=== PATIENT | male | born 1995 | race Caucasian/White ===

== ENCOUNTER 2018-07-16 08:50 | Emergency (ER) | payer OTHER ==
[~2018-07-16] VITALS: Ht 177.8 cm; Wt 81.8 kg
[2018-07-16 08:51] VITALS: BP 128/82
[2018-07-16] MEDS ORDERED: ONDANSETRON 4MG/2ML VIAL (J2405) IV ONE (09:15)
[2018-07-16] MEDS ORDERED: NS 1,000 ML IV ONE (09:15)
[2018-07-16 09:37] LABS: BASO % 0.2 % (0.0-1.0); EOS # 0.1 10^3/uL (0.0-0.50); EOS % 0.4 % (0.0-3.0); LYMPH # 0.7 10^3/uL (1.5-6.5); LYMPH % 4.5 % (24.0-44.0); MEAN CORPUSCULAR HEMOGLOBIN 30.1 pg (27.0-33.0); MEAN CORPUSCULAR HGB CONC 35.1 g/dl (32.0-36.5); MEAN CORPUSCULAR VOLUME 85.8 fl (80.0-96.0); MONO % 6.3 % (0.0-5.0); NEUTROPHILS # 13.7 10^3/uL (1.8-7.7); NEUTROPHILS % 88.2 % (36.0-66.0); PLATELET COUNT, AUTOMATED 336 10^3/uL (150-450); RED BLOOD COUNT 6.07 10^6/uL (4.30-6.10); WHITE BLOOD COUNT 15.6 10^3/uL (4.0-10.0)
[2018-07-16 09:39] LABS: HEMATOCRIT 52.1 % (42.0-52.0); HEMOGLOBIN 18.3 g/dl (13.5-17.5)
[2018-07-16 10:00] LABS: ALBUMIN 4.7 GM/DL (3.2-5.2); ALT/SGPT 27 U/L (12-78); AMYLASE 83 U/L (25-115); BILIRUBIN,DIRECT 0.2 MG/DL (0.0-0.2); BILIRUBIN,TOTAL 0.7 MG/DL (0.2-1.0); BLOOD UREA NITROGEN 15 MG/DL (7-18); CALCIUM LEVEL 9.2 MG/DL (8.5-10.1); CARBON DIOXIDE LEVEL 31 MEQ/L (21-32); CHLORIDE LEVEL 104 MEQ/L (98-107); CREATININE FOR GFR 1.07 MG/DL (0.70-1.30); GLOMERULAR FILTRATION RATE > 60.0 (>60); GLUCOSE, FASTING 93 MG/DL (70-100); LIPASE 104 U/L (73-393); POTASSIUM SERUM 4.1 MEQ/L (3.5-5.1); SODIUM LEVEL 141 MEQ/L (136-145); TOTAL PROTEIN 7.7 GM/DL (6.4-8.2)
[2018-07-16] MEDS ORDERED: ISOVUE-370 76% 100ML VIAL (Q9967) As Ordered ONE (10:26)
[2018-07-16] MEDS ORDERED: ONDA4TAB6 PO (10:46)
[2018-07-16] MEDS ORDERED: DICY10CA13 PO (10:47)
--- NOTE | 2018-07-16 10:50 | REP ---
Clinical: Abdominal pain with nausea, vomiting, and diarrhea. Technique: Axial contrast enhanced images from the lung bases to the pubic symphysis using 100 ml Isovue 370 intravenous contrast material with coronal and sagittal re-formations. Findings: Lung bases are clear. Visualized heart and pericardium normal. Liver, spleen, pancreas, gallbladder, bilateral adrenal glands and kidneys are normal. The enteric system is without obstruction or acute inflammatory process. Normal terminal ileum and appendix identified in the right lower quadrant. Pelvis demonstrates normal bladder and age appropriate prostate/seminal vesicles. No ascites. No free air. No adenopathy. Abdominal aorta and vasculature normal. Surrounding musculoskeletal structures are intact. Impression: Normal CT of the abdomen and pelvis. No acute abdominopelvic pathology appreciated. Electronically Signed by Zay Gerardo MD 07/16/2018 10:42 A
== END 2018-07-16 11:01 | disposition home or self-care (01) ==
LOC: M ED 08:50
DX: R10.9 Unspecified abdominal pain (principal); R11.2 Nausea with vomiting, unspecified; R19.7 Diarrhea, unspecified; Z91.013 Allergy to seafood; F17.210 Nicotine dependence, cigarettes, uncomplicated
CPT/HCPCS: 36415; 74177; 80048; 80076; 81001; 82150; 83690; 85025; 87507; 96361; 96374; 99284; J2405; Q9967

== ENCOUNTER 2018-10-29 09:50 | Emergency (ER) | payer OTHER ==
[~2018-10-29] VITALS: Ht 180.3 cm; Wt 81.1 kg
[~2018-10-29 09:50] MED LIST: DICY10CA13 PO; ONDA4TAB6 PO
[2018-10-29] MEDS ORDERED: LIDOCAINE 1% MDV 20ML VIAL SC ONE (10:15)
--- NOTE | 2018-10-29 10:55 | REP ---
RIGHT HAND SERIES: Four views of the right hand are performed. No fracture or dislocation is seen. Two metallic screws are seen in the base of the 4th middle phalanx. There is mild narrowing of the 4th proximal interphalangeal joint. No other significant findings are seen. Electronically Signed by Bradly Adam MD 10/29/2018 04:50 P
[2018-10-29] MEDS ORDERED: AUGMENTIN 875 MG TAB PO ONE (11:15)
[2018-10-29] MEDS ORDERED: AUGM875T28 PO (11:26)
[2018-10-29] MEDS ORDERED: IBUP-1022 PO (11:26)
[2018-10-29 11:36] VITALS: BP 135/78
[2018-10-30] MEDS ORDERED: MIDAZOLAM INJ 2 MG/2 ML VIAL (J2250) As Ordered ONE (15:56)
[2018-10-30] MEDS ORDERED: PROPOFOL 200 MG/20 ML VIAL As Ordered ONE (15:56)
[2018-10-30] MEDS ORDERED: dexameTHASONE 4 MG/ML 1ML VIAL (J1100) As Ordered ONE (15:56)
[2018-10-30] MEDS ORDERED: ONDANSETRON 4MG/2ML VIAL (J2405) As Ordered ONE ×2 (15:56→17:14)
[2018-10-30] MEDS ORDERED: LIDOCAINE 2% INJ 100 MG/5 ML SDV (FOR ANES.) As Ordered ONE (15:56)
[2018-10-30] MEDS ORDERED: fentaNYL 100 MCG/2 ML INJECTION (J3010) As Ordered ONE (15:56)
[2018-10-30] MEDS ORDERED: ACETAMINOPHEN 1000MG 100ML IV BTL (OFIRMEV) (J0131 PER 10MG) As Ordered ONE (17:09)
== END 2018-10-29 11:37 | disposition home or self-care (01) ==
LOC: M ED 09:50
DX: S66.921A Laceration of unspecified muscle, fascia and tendon at wrist and hand level, right hand, initial encounter (principal); X58.XXXA Exposure to other specified factors, initial encounter; Y92.59 Other trade areas as the place of occurrence of the external cause; Y93.9 Activity, unspecified; Y99.9 Unspecified external cause status; Z72.0 Tobacco use; Z91.018 Allergy to other foods

== ENCOUNTER 2018-10-30 13:20 | Day surgery (SDC) | payer OTHER ==
[~2018-10-30] VITALS: Ht 180.3 cm; Wt 79.2 kg
[~2018-10-30 13:20] MED LIST changes: +AUGM875T28 PO; +IBUP-1022 PO
[2018-10-30] MEDS ORDERED: dexameTHASONE 4 MG/ML 1ML VIAL (J1100) ONE (15:56)
[2018-10-30] MEDS ORDERED: MIDAZOLAM INJ 2 MG/2 ML VIAL (J2250) ONE (15:56)
[2018-10-30] MEDS ORDERED: fentaNYL 100 MCG/2 ML INJECTION (J3010) ONE (15:56)
[2018-10-30] MEDS ORDERED: LIDOCAINE 2% INJ 100 MG/5 ML SDV (FOR ANES.) ONE (15:56)
[2018-10-30] MEDS ORDERED: ONDANSETRON 4MG/2ML VIAL (J2405) ONE ×2 (15:56→17:14)
[2018-10-30] MEDS ORDERED: PROPOFOL 200 MG/20 ML VIAL ONE (15:57)
[2018-10-30] MEDS ORDERED: BUPIVACAINE/EPIN 0.25% 30 ML VIAL As Ordered ONE (16:37)
[2018-10-30] MEDS ORDERED: ACETAMINOPHEN 1000MG 100ML IV BTL (OFIRMEV) (J0131 PER 10MG) ONE (17:09)
[2018-10-30] MEDS ORDERED: SEVOFLURANE INHAL SOLN 250 ML BTL As Ordered ONE (17:22)
[2018-10-30] MEDS: fentaNYL 100 MCG/2 ML INJECTION (J3010) IV PRN ×3 (18:22→18:53)
[2018-10-30] MEDS: PERCOCET 5MG/325MG TAB PO PRN ×2 (18:23→18:53)
[2018-10-30] MEDS ORDERED: LR 1,000 ML IV SCH ×2 (18:30)
[2018-10-30] MEDS ORDERED: HYDROMORPHONE HCL 0.5 MG/ 0.5 ML SYRINGE (J1170 PER 1) IV PRN (18:30)
[2018-10-30] MEDS ORDERED: ONDANSETRON 4MG/2ML VIAL (J2405) IV PRN (18:30)
[2018-10-30 20:15] VITALS: BP 147/72
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
== END 2018-10-30 20:30 | disposition home or self-care (01) ==
LOC: M SDC 13:20
PROVIDERS: ATTEND Orthopaedic Surgery Sports Medicine
DX: S66.322A Laceration of extensor muscle, fascia and tendon of right middle finger at wrist and hand level, initial encounter (principal); Y04.2XXA Assault by strike against or bumped into by another person, initial encounter; Y93.9 Activity, unspecified; Y92.9 Unspecified place or not applicable; Y99.9 Unspecified external cause status; Z72.0 Tobacco use; Z91.018 Allergy to other foods
CPT/HCPCS: 26418; J0131; J0690; J1100; J2250; J2405; J3010

== ENCOUNTER 2020-05-26 23:52 | Emergency (ER) | payer OTHER ==
[~2020-05-26] VITALS: Ht 177.8 cm; Wt 96.8 kg
[2020-05-27] MEDS ORDERED: LIDOCAINE 5% (LIDODERM) PATCH TD ONE (01:15)
[2020-05-27] MEDS ORDERED: KETOROLAC 60MG 2ML VIAL IM ONE (01:15)
[2020-05-27] MEDS ORDERED: methylPREDNISolone 125MG 2ML VIAL IM ONE (01:15)
--- NOTE | 2020-05-27 01:41 | REPVR ---
PROCEDURE INFORMATION: Exam: CT Lumbar Spine Without Contrast Exam date and time: 05/27/2020 1:11 AM Age: 25 years old Clinical indication: Low back pain; Additional info: Severe sudden onset low back pain TECHNIQUE: Imaging protocol: Computed tomography images of the lumbar spine without contrast. Radiation optimization: All CT scans at this facility use at least one of these dose optimization techniques: automated exposure control; mA and/or kV adjustment per patient size (includes targeted exams where dose is matched to clinical indication); or iterative reconstruction. COMPARISON: No relevant prior studies available. FINDINGS: Vertebrae: Vertebral body height and AP alignment is preserved. No acute fracture. No osseous destruction. Discs/Spinal canal/Neural foramina: Left-sided protrusion at L4-L5 causing suspected moderate central canal stenosis. Soft tissues: Unremarkable. IMPRESSION: 1. No acute osseous abnormality. 2. Left-sided protrusion at L4-L5 causing suspected moderate central canal stenosis. MRI may be considered. Electronically signed by: Tito Blunt On 05/27/2020 01:42:19 AM
[2020-05-27] MEDS ORDERED: CYCL-707 PO (02:15)
[2020-05-27] MEDS ORDERED: CYCLOBENZAPRINE 10MG TABLET PO ONE (02:15)
[2020-05-27 02:29] VITALS: BP 157/75
[2020-05-27] MEDS ORDERED: **NOTE PATIENT COMMENT** MISC XX SCH (09:00)
--- NOTE | 2020-05-27 13:11 | ED PDOC ---
Post-Departure Follow-Up ct ls spine faxed to dr campos for fu Maame Rivers MD May 27, 2020 13:11
== END 2020-05-27 02:30 | disposition home or self-care (01) ==
LOC: M ED 23:52
DX: M54.5 Low back pain (principal); M51.26 Other intervertebral disc displacement, lumbar region; Z91.013 Allergy to seafood
CPT/HCPCS: 72131; 96372; 99283; J1885; J2930

== ENCOUNTER 2021-02-22 19:31 | Emergency (ER) | payer OTHER, SELFPAY ==
[~2021-02-22] VITALS: Ht 177.8 cm; Wt 86.7 kg
[~2021-02-22 19:31] MED LIST changes: +CYCL-707 PO
[2021-02-22 19:32] VITALS: BP 129/73
[2021-02-22] MEDS ORDERED: IBUP80TA PO (19:42)
== END 2021-02-23 00:10 | disposition left against medical advice (07) ==
LOC: M ED 19:31
DX: Z53.21 Procedure and treatment not carried out due to patient leaving prior to being seen by health care provider (principal)

== ENCOUNTER 2021-11-20 16:34 | Emergency (ER) | payer BC, SELFPAY ==
[~2021-11-20] VITALS: Ht 180.3 cm; Wt 82.7 kg
[~2021-11-20 16:34] MED LIST changes: +IBUP80TA PO
[2021-11-20] MEDS ORDERED: traMADol 50 MG TAB PO ONE (17:45)
[2021-11-20] MEDS ORDERED: ACETAMINOPHEN TAB 650MG DOSE (2X325MG) PO ONE (17:45)
[2021-11-20] MEDS ORDERED: METH-1165 PO (17:48)
[2021-11-20] MEDS ORDERED: MEDR4PAK PO (17:48)
[2021-11-20 17:56] VITALS: BP 131/66
== END 2021-11-20 17:59 | disposition home or self-care (01) ==
LOC: M ED 16:34
DX: S39.012A Strain of muscle, fascia and tendon of lower back, initial encounter (principal); M51.37 Other intervertebral disc degeneration, lumbosacral region; Y92.099 Unspecified place in other non-institutional residence as the place of occurrence of the external cause; Y93.89 Activity, other specified; Z79.899 Other long term (current) drug therapy; Z91.013 Allergy to seafood

== ENCOUNTER → 2021-12-14 | Outpatient (CLI) | payer BC ==
[~2021-12-14] MED LIST changes: +MEDR4PAK PO; +METH-1165 PO
== END ==
LOC: M SOG 09:07
PROVIDERS: ATTEND Orthopaedic Surgery
DX: Z47.89 Encounter for other orthopedic aftercare (principal)

== ENCOUNTER 2023-01-11 16:53 | Emergency (ER) | payer BC, OTHER ==
[~2023-01-11] VITALS: Ht 180.3 cm; Wt 79.5 kg
[~2023-01-11 16:53] MED LIST changes: +DICY-61 PO; -DICY10CA13 PO
[2023-01-11] MEDS ORDERED: MED REC IN PROGRESS XX SCH (19:00)
[2023-01-11] MEDS ORDERED: CLON1TAB8 PO (19:05)
[2023-01-11] MEDS ORDERED: HOME MED LIST COMPLETE! XX SCH (19:15)
[2023-01-11 23:11] VITALS: BP 142/80; TEMP 97.9; O2SAT 100
== END 2023-01-11 23:15 | disposition home or self-care (01) ==
LOC: M ED 16:53
DX: Z13.30 Encounter for screening examination for mental health and behavioral disorders, unspecified (principal); Z63.0 Problems in relationship with spouse or partner; Z91.51 Personal history of suicidal behavior; R56.9 Unspecified convulsions; F32.A Depression, unspecified; F17.290 Nicotine dependence, other tobacco product, uncomplicated; Z91.013 Allergy to seafood

== ENCOUNTER 2023-05-09 11:48 | Inpatient (IN) | payer OTHER ==
[~2023-05-09] VITALS: Ht 182.9 cm; Wt 83.0 kg
[~2023-05-09 11:48] MED LIST changes: +CLON1TAB8 PO
[2023-05-09 12:12] LABS: BASO # 0.1 10^3/uL (0.0-0.2); BASO % 2.2 % (0.0-1.0); EOS % 16.1 % (0.0-3.0); HEMATOCRIT 46.7 % (42.0-52.0); LYMPH # 1.7 10^3/uL (1.5-5.0); LYMPH % 28.3 % (24.0-44.0); MEAN CORPUSCULAR HEMOGLOBIN 30.1 pg (27.0-33.0); MEAN CORPUSCULAR HGB CONC 34.3 g/dl (32.0-36.5); MEAN CORPUSCULAR VOLUME 87.9 fl (80.0-96.0); MONO # 0.5 10^3/uL (0.0-0.8); MONO % 8.6 % (2.0-8.0); NEUTROPHILS # 2.6 10^3/uL (1.5-8.5); NEUTROPHILS % 44.6 % (36.0-66.0); PLATELET COUNT, AUTOMATED 311 10^3/uL (150-450); RED BLOOD COUNT 5.31 10^6/uL (4.30-6.10); WHITE BLOOD COUNT 5.9 10^3/uL (4.0-10.0)
[2023-05-09] MEDS ORDERED: NS 1,000 ML IV ONE (12:15)
[2023-05-09 12:43] LABS: ETHYL ALCOHOL (ETHANOL) < 0.003 % (0.000-0.010)
[2023-05-09 12:44] LABS: SALICYLATE LEVEL < 3.0 MG/DL (<30)
[2023-05-09 12:45] LABS: ALBUMIN 4.4 G/DL (3.2-5.2); ALKALINE PHOSPHATASE 67 U/L (46-116); ALT/SGPT 13 U/L (7.0-40); AST/SGOT 11 U/L (<34); BILIRUBIN,DIRECT 0.2 MG/DL (<0.4); BILIRUBIN,TOTAL 0.5 MG/DL (0.3-1.2); BLOOD UREA NITROGEN 10 MG/DL (9-23); CARBON DIOXIDE LEVEL 26 MMOL/L (20-31); CHLORIDE LEVEL 106 MMOL/L (98-107); CREATININE FOR GFR 1.01 MG/DL (0.70-1.30); GLOMERULAR FILTRATION RATE > 60.0 (>60); GLUCOSE, FASTING 101 MG/DL (60-100); POTASSIUM SERUM 4.1 MMOL/L (3.5-5.1); SODIUM LEVEL 142 MMOL/L (136-145); TOTAL PROTEIN 6.4 G/DL (5.7-8.2)
[2023-05-09 12:47] LABS: THYROID STIMULATING HORMONE 1.363 uIU/ML (0.55-4.78)
[2023-05-09 12:48] LABS: RSV AMPLIFICATION NEGATIVE (NEGATIVE)
[2023-05-09 12:51] LABS: CPK CREATINE PHOSPHOKINASE 68 U/L (46-171)
[2023-05-09 12:54] LABS: BARBITURATES URINE NEGATIVE (NEGATIVE); CANNABINOIDS URINE NEGATIVE (NEGATIVE); METHADONE URINE NEGATIVE (NEGATIVE); OPIATES URINE NEGATIVE (NEGATIVE); PHENCYCLIDINE URINE NEGATIVE (NEGATIVE)
[2023-05-09 12:56] LABS: AMPHETAMINES LEVEL URINE POSITIVE (NEGATIVE); BENZODIAZEPINES URINE POSITIVE (NEGATIVE); COCAINE METABOLITE URINE POSITIVE (NEGATIVE)
[2023-05-09] MEDS ORDERED: ACETYLCYSTEINE IV ONE ×3 (14:00→19:00)
[2023-05-09] MEDS ORDERED: D5W IV ONE ×3 (14:00→19:00)
[2023-05-09] MEDS ORDERED: ONDANSETRON 4MG 2ML VIAL IV ONE (14:30)
[2023-05-09] MEDS ORDERED: METOCLOPRAMIDE INJ 10MG/2ML VIAL IV ONE (15:30)
[2023-05-09 16:37] LABS: SALICYLATE LEVEL < 3.0 MG/DL (<30)
[2023-05-09 16:38] LABS: ALBUMIN 3.7 G/DL (3.2-5.2); ALKALINE PHOSPHATASE 58 U/L (46-116); ALT/SGPT 36 U/L (7.0-40); AST/SGOT 51 U/L (<34); BILIRUBIN,DIRECT 0.2 MG/DL (<0.4); BILIRUBIN,TOTAL 0.4 MG/DL (0.3-1.2); BLOOD UREA NITROGEN 11 MG/DL (9-23); CALCIUM LEVEL 8.8 MG/DL (8.5-10.1); CARBON DIOXIDE LEVEL 25 MMOL/L (20-31); CHLORIDE LEVEL 108 MMOL/L (98-107); CREATININE FOR GFR 0.78 MG/DL (0.70-1.30); GLOMERULAR FILTRATION RATE > 60.0 (>60); GLUCOSE, FASTING 105 MG/DL (60-100); POTASSIUM SERUM 3.8 MMOL/L (3.5-5.1); SODIUM LEVEL 141 MMOL/L (136-145); TOTAL PROTEIN 5.8 G/DL (5.7-8.2)
[2023-05-09] MEDS ORDERED: MAALOX 30 ML SUSP *UDC PO PRN (18:35)
[2023-05-09] MEDS ORDERED: MOM 30ML SUSPENSION UDC PO PRN (18:35)
[2023-05-09] MEDS ORDERED: ONDANSETRON 4MG 2ML VIAL IV PRN (18:50)
[2023-05-09] MEDS: NS 1,000 ML IV SCH ×2 (18:50→23:31)
[2023-05-09 20:07] LABS: INR 1.27; PROTHROMBIN TIME 15.5 SECONDS (12.5-14.5)
[2023-05-09] MEDS ORDERED: med rec comment (21:34)
[2023-05-09] MEDS ORDERED: HOME MED LIST COMPLETE! XX SCH (21:35)
[2023-05-09 21:45] VITALS: BP 124/86; TEMP 97.8; O2SAT 100
[2023-05-09 21:57] VITALS: BP 124/86
[2023-05-09 22:00] VITALS: O2SAT 100
[2023-05-09 23:00] VITALS: O2SAT 99
[2023-05-09] MEDS: THIAMINE 100 MG TAB PO SCH (23:30)
[2023-05-10] VITALS (27 sets, daily range): BP systolic 106–142; BP diastolic 64–97; TEMP 96.5–99.8; O2SAT 96–99
[2023-05-10 04:50] LABS: HEMATOCRIT 42.9 % (42.0-52.0); HEMOGLOBIN 15.2 g/dl (13.5-17.5); MEAN CORPUSCULAR HGB CONC 35.4 g/dl (32.0-36.5); MEAN CORPUSCULAR VOLUME 87.4 fl (80.0-96.0); PLATELET COUNT, AUTOMATED 306 10^3/uL (150-450); RED BLOOD COUNT 4.91 10^6/uL (4.30-6.10); WHITE BLOOD COUNT 10.9 10^3/uL (4.0-10.0)
[2023-05-10 05:09] LABS: ALBUMIN 3.3 G/DL (3.2-5.2); ALKALINE PHOSPHATASE 55 U/L (46-116); ALT/SGPT 36 U/L (7.0-40); AST/SGOT 19 U/L (<34); BILIRUBIN,TOTAL 0.5 MG/DL (0.3-1.2); BLOOD UREA NITROGEN 8 MG/DL (9-23); CALCIUM LEVEL 8.9 MG/DL (8.5-10.1); CARBON DIOXIDE LEVEL 24 MMOL/L (20-31); CHLORIDE LEVEL 112 MMOL/L (98-107); GLOMERULAR FILTRATION RATE > 60.0 (>60); GLUCOSE, FASTING 96 MG/DL (60-100); POTASSIUM SERUM 3.4 MMOL/L (3.5-5.1); SODIUM LEVEL 143 MMOL/L (136-145); TOTAL PROTEIN 5.2 G/DL (5.7-8.2)
[2023-05-10] MEDS: KCL 10MEQ/100ML SWI (KRUN) 10 MEQ in IV 1 EA IV SCH ×4 (08:26→11:46)
[2023-05-10] MEDS: FOLIC ACID 1MG TAB PO SCH (09:33)
[2023-05-10] MEDS: THIAMINE 100 MG TAB PO SCH ×2 (09:35→21:31)
[2023-05-10] MEDS: ENOXAPARIN 40MG/0.4ML SYRINGE (J1650 PER 10MG) SC SCH (09:36)
[2023-05-10] MEDS: MULTIVITAMINS/MINERALS THERAP 1 TAB PO SCH (09:36)
[2023-05-10] MEDS: NS 1,000 ML IV SCH ×2 (10:44→21:31)
[2023-05-10 14:09] LABS: BLOOD UREA NITROGEN 8 MG/DL (9-23); CALCIUM LEVEL 9.2 MG/DL (8.5-10.1); CARBON DIOXIDE LEVEL 26 MMOL/L (20-31); CHLORIDE LEVEL 111 MMOL/L (98-107); GLOMERULAR FILTRATION RATE > 60.0 (>60); GLUCOSE, FASTING 88 MG/DL (60-100); POTASSIUM SERUM 4.5 MMOL/L (3.5-5.1); SODIUM LEVEL 143 MMOL/L (136-145)
[2023-05-10] MEDS: predniSONE 10MG TAB PO SCH (16:02)
[2023-05-10] MEDS: CEFDINIR 300 MG CAP (OMNICEF) PO SCH (17:24)
[2023-05-10] MEDS: DOXYCYCLINE HYCLATE 100MG TABLET PO SCH (17:24)
[2023-05-10] MEDS: FLUTICASONE PROP 0.05% NASAL SPRAY 16 GM (FLONASE) NARES SCH (17:25)
[2023-05-11] VITALS: O2SAT 98
[2023-05-11 01:00] VITALS: O2SAT 98
[2023-05-11 03:50] VITALS: BP 123/65; TEMP 96.8; O2SAT 94
[2023-05-11 06:00] VITALS: BP 116/72
[2023-05-11] MEDS: CEFDINIR 300 MG CAP (OMNICEF) PO SCH (06:33)
[2023-05-11] MEDS: DOXYCYCLINE HYCLATE 100MG TABLET PO SCH (06:33)
[2023-05-11 06:43] LABS: BASO # 0.1 10^3/uL (0.0-0.2); BASO % 0.9 % (0.0-1.0); EOS # 0.5 10^3/uL (0.0-0.5); EOS % 5.4 % (0.0-3.0); HEMATOCRIT 40.8 % (42.0-52.0); HEMOGLOBIN 14.2 g/dl (13.5-17.5); LYMPH # 2.5 10^3/uL (1.5-5.0); LYMPH % 27.4 % (24.0-44.0); MEAN CORPUSCULAR HEMOGLOBIN 30.6 pg (27.0-33.0); MEAN CORPUSCULAR HGB CONC 34.8 g/dl (32.0-36.5); MEAN CORPUSCULAR VOLUME 87.9 fl (80.0-96.0); MONO # 0.5 10^3/uL (0.0-0.8); MONO % 5.5 % (2.0-8.0); NEUTROPHILS # 5.4 10^3/uL (1.5-8.5); NEUTROPHILS % 60.5 % (36.0-66.0); PLATELET COUNT, AUTOMATED 282 10^3/uL (150-450); RED BLOOD COUNT 4.64 10^6/uL (4.30-6.10)
[2023-05-11 08:00] VITALS: BP 116/71; TEMP 97.3; O2SAT 99
[2023-05-11] MEDS: ENOXAPARIN 40MG/0.4ML SYRINGE (J1650 PER 10MG) SC SCH (09:00)
[2023-05-11] MEDS ORDERED: PRED10TA2 PO (09:21)
[2023-05-11] MEDS ORDERED: DOXY100T PO (09:21)
[2023-05-11] MEDS ORDERED: FLUTISP NARES (09:21)
[2023-05-11] MEDS ORDERED: CEFD300CAP PO (09:21)
[2023-05-11] MEDS: FOLIC ACID 1MG TAB PO SCH (10:23)
[2023-05-11] MEDS: THIAMINE 100 MG TAB PO SCH (10:24)
[2023-05-11] MEDS: predniSONE 10MG TAB PO SCH (10:24)
[2023-05-11] MEDS: MULTIVITAMINS/MINERALS THERAP 1 TAB PO SCH (10:24)
[2023-05-11] MEDS: FLUTICASONE PROP 0.05% NASAL SPRAY 16 GM (FLONASE) NARES SCH (10:26)
== END 2023-05-11 11:26 | disposition home or self-care (01) | DRG 918 ==
LOC: EDBD 11:48 → M ED 11:48 → M ED INP 18:35 → ENRESERV 20:09 → M PCU 21:45
PROVIDERS: ADMIT Student in an Organized Health Care Education/Training Program; ATTEND Student in an Organized Health Care Education/Training Program
DX: T42.4X1A Poisoning by benzodiazepines, accidental (unintentional), initial encounter (principal); T45.0X1A Poisoning by antiallergic and antiemetic drugs, accidental (unintentional), initial encounter; J20.9 Acute bronchitis, unspecified; F41.8 Other specified anxiety disorders; M54.50 Low back pain, unspecified; F10.10 Alcohol abuse, uncomplicated; F17.200 Nicotine dependence, unspecified, uncomplicated; Z79.899 Other long term (current) drug therapy; Z91.013 Allergy to seafood; Z20.822 Contact with and (suspected) exposure to COVID-19; R74.01 Elevation of levels of liver transaminase levels

== ENCOUNTER 2024-08-26 21:02 | Emergency (ER) | payer OTHER ==
[~2024-08-26 21:02] MED LIST changes: +CEFD300CAP PO; +DOXY100T PO; +FLUTISP NARES; +ONDA-282 PO; -ONDA4TAB6 PO; +PRED10TA2 PO; +med rec comment
[2024-08-26 21:08] VITALS: BP 139/74; TEMP 99; O2SAT 98
== END 2024-08-26 22:36 | disposition home or self-care (01) ==
LOC: M ED 21:02 → EDBD 21:02 → M ED 22:36
DX: F19.10 Other psychoactive substance abuse, uncomplicated (principal); S01.01XA Laceration without foreign body of scalp, initial encounter; S00.83XA Contusion of other part of head, initial encounter; W22.8XXA Striking against or struck by other objects, initial encounter; F32.A Depression, unspecified; F10.10 Alcohol abuse, uncomplicated; Z91.013 Allergy to seafood; Z91.018 Allergy to other foods; Z79.899 Other long term (current) drug therapy; Z79.52 Long term (current) use of systemic steroids; Z79.2 Long term (current) use of antibiotics; Z65.3 Problems related to other legal circumstances; Y92.89 Other specified places as the place of occurrence of the external cause; Y93.89 Activity, other specified; Y99.9 Unspecified external cause status